=== PATIENT | male | born 1985 | race American Indian/Alaskan Native ===

== ENCOUNTER 2016-11-12 21:04 | Emergency (ER) | payer SELFPAY ==
[2016-11-12] MEDS ORDERED: PROVENTIL IH ONE ×2 (21:17→21:22)
--- NOTE | 2016-11-12 23:41 | Emergency Department Report ---
- General Chief Complaint: Upper Respiratory Infection Stated Complaint: SHORTNESS OF BREATH Time Seen by Provider: 11/12/16 23:33 Source: patient Mode of arrival: Ambulatory Limitations: No Limitations - History of Present Illness Initial Comments: 30-year-old male presents to emergency with complaints of dry cough congestion for last 3 days. Patient has been taking [id number] cough medicine with no relief. Denies any chest pain. MD Complaint: cough, rhinorrhea, nasal congestion -: Gradual, days(s) (3) Severity: moderate Severity scale (0 -10): 2 Quality: dull Consistency: constant Improves With: nothing Worsens With: activity, deep breaths Associated Symptoms: cough, shortness of breath Treatments Prior to Arrival: none - Related Data Previous Rx's Medication Instructions Recorded Last Taken Type Azithromycin [Zithromax Z-ZACHARIAH] 0 mg PO DAILY #1 pack 11/13/16 Unknown Rx Cetirizine HCl [ZyrTEC] 10 mg PO DAILY #20 tab.chew 11/13/16 Unknown Rx predniSONE [Deltasone] 60 mg PO QDAY #15 tab 11/13/16 Unknown Rx Allergies Allergy/AdvReac Type Severity Reaction Status Date / Time No Known Allergies Allergy Unverified 11/12/16 21:22 ED Review of Systems ROS: Stated complaint: SHORTNESS OF BREATH Other details as noted in HPI Comment: All other systems reviewed and negative Constitutional: denies: chills, fever Eyes: denies: eye pain, eye discharge, vision change ENT: denies: ear pain, throat pain Respiratory: see HPI, cough, shortness of breath. denies: wheezing Cardiovascular: denies: chest pain, palpitations Endocrine: no symptoms reported Gastrointestinal: denies: abdominal pain, nausea, diarrhea Genitourinary: denies: urgency, dysuria Musculoskeletal: denies: back pain, joint swelling, arthralgia Skin: denies: rash, lesions Neurological: denies: headache, weakness, paresthesias Psychiatric: denies: anxiety, depression Hematological/Lymphatic: denies: easy bleeding, easy bruising ED Past Medical Hx - Past Medical History Previous Medical History?: No Additional medical history: Bronchitis - Surgical History Past Surgical History?: No Additional Surgical History: Hernia Repair - Family History Family history: no significant - Social History Smoking Status: Current Every Day Smoker Substance Use Type: Marijuana - Medications Home Medications: Home Medications Medication Instructions Recorded Confirmed Last Taken Type Azithromycin [Zithromax Z-ZACHARIAH] 0 mg PO DAILY #1 pack 11/13/16 Unknown Rx Cetirizine HCl [ZyrTEC] 10 mg PO DAILY #20 tab.chew 11/13/16 Unknown Rx predniSONE [Deltasone] 60 mg PO QDAY #15 tab 11/13/16 Unknown Rx ED Physical Exam - General Limitations: No Limitations General appearance: alert, in no apparent distress - Head Head exam: Present: atraumatic, normocephalic - Eye Eye exam: Present: normal appearance, PERRL, EOMI - ENT ENT exam: Present: mucous membranes moist - Neck Neck exam: Present: normal inspection - Respiratory Respiratory exam: Present: normal lung sounds bilaterally, wheezes (mild difuse bilateral). Absent: respiratory distress - Cardiovascular Cardiovascular Exam: Present: regular rate, normal rhythm. Absent: systolic murmur, diastolic murmur, rubs, gallop - GI/Abdominal GI/Abdominal exam: Present: soft, normal bowel sounds - Rectal Rectal exam: Present: deferred - Extremities Exam Extremities exam: Present: normal inspection - Back Exam Back exam: Present: normal inspection - Neurological Exam Neurological exam: Present: alert, oriented X3, CN II-XII intact, normal gait, reflexes normal - Psychiatric Psychiatric exam: Present: normal affect, normal mood - Skin Skin exam: Present: warm, dry, intact, normal color. Absent: rash ED Course Vital Signs 11/12/16 21:13 Temperature 98 F Pulse Rate 107 H Respiratory 22 Rate Blood Pressure 138/85 Blood Pressure 138/85 [Left] O2 Sat by Pulse 97 Oximetry - Reevaluation(s) Reevaluation #1: Feeling better after receiving Decadron injection. Vital signs stable. 11/13/16 00:29 Critical Care Time: No Critical care attestation.: If time is entered above; I have spent that time in minutes in the direct care of this critically ill patient, excluding procedure time. ED Disposition Clinical Impression: Bronchitis, acute, with bronchospasm Disposition: DISCHARGED TO HOME OR SELFCARE Is pt being admited?: No Does the pt Need Aspirin: No Condition: Good Instructions: Acute Bronchitis (ED), Bronchospasm (ED) Prescriptions: Azithromycin [Zithromax Z-ZACHARIAH] 0 mg PO DAILY #1 pack Cetirizine HCl [ZyrTEC] 10 mg PO DAILY #20 tab.chew predniSONE [Deltasone] 60 mg PO QDAY #15 tab Referrals: PRIMARY CARE, [Primary Care Provider] - 3-5 Days
[2016-11-13 00:53] VITALS: BP 142/83
--- NOTE | 2016-11-13 08:50 | XRay Report ---
AP CHEST: HISTORY: Difficulty in breathing, cough AP view of the chest demonstrates a normal mediastinal and cardiac contour with clear lungs and normal bony and soft tissue structures. IMPRESSION: Unremarkable AP chest.
== END 2016-11-13 01:00 | disposition home or self-care (01) ==
LOC: ED 21:04
DX: J20.9 Acute bronchitis, unspecified (principal); F17.200 Nicotine dependence, unspecified, uncomplicated; F12.90 Cannabis use, unspecified, uncomplicated
CPT/HCPCS: 71020; 96372; 99283; J2930